=== PATIENT | male | born 1960 | race Caucasian/White ===

== ENCOUNTER 2022-03-28 09:59 | Inpatient (IN) | payer OTHER ==
[~2022-03-28] VITALS: Ht 175.3 cm; Wt 98.5 kg
[2022-03-28 11:23] LABS: Source, Urine Clean Catch
[2022-03-28 11:29] LABS: BASOPHILS ABSOLUTE AUTO 0.07 K/mm3 (0.00-0.23); BASOPHILS PERCENT AUTO 1 % (0-2); EOSINOPHILS ABSOLUTE AUTO 0.24 K/mm3 (0.00-0.68); EOSINOPHILS PERCENT AUTO 2 % (0-6); Hematocrit 32.5 % (37.0-53.0); Hemoglobin 11.1 g/dL (13.5-17.5); IMMATURE GRAN ABSOLUTE AUTO 0.04 K/mm3 (0.00-0.10); IMMATURE GRAN PERCENT AUTO 0 % (0-1); LYMPHOCYTES PERCENT AUTO 15 % (21-46); MONOCYTES ABSOLUTE AUTO 0.97 K/mm3 (0.16-1.47); MONOCYTES PERCENT AUTO 9 % (4-13); Mean Corpuscular HGB 31.4 pg (26.0-34.0); Mean Corpuscular HGB Conc 34.2 g/dL (31.5-36.5); Mean Corpuscular Volume 92 fL (80-100); NEUTROPHILS ABSOLUTE AUTO 8.32 K/mm3 (1.96-9.15); NEUTROPHILS PERCENT AUTO 73 % (41-73); Platelet Count 269 K/mm3 (150-400); RDW Coefficient Variation 11.9 % (11.7-14.2); Red Blood Cell Count 3.53 M/mm3 (4.30-5.90); White Blood Cell Count 11.34 K/mm3 (4.00-11.30)
[2022-03-28 11:30] LABS: Appearance, Urine Clear (Clear); Bilirubin, Urine Neg (Neg); Blood, Urine 5+ (Neg); Color, Urine Yellow (P-Yellow); Glucose Qualitative, Urine Neg (Neg); Ketones, Urine Neg (Neg); Leukocyte Esterase, Urine Neg (Neg); Nitrite, Urine Neg (Neg); Protein, Urine 4+ (Neg); Specific Gravity, Urine 1.015 (1.003-1.022); Urobilinogen, Urine NORM (Normal)
[2022-03-28 11:49] LABS: Influenza A, PCR NEGATIVE (NEGATIVE); Influenza B, PCR NEGATIVE (NEGATIVE); Resp Syncytial Virus, PCR NEGATIVE (NEGATIVE); SARS-Cov-2 (COVID-19) PCR, MMC NEGATIVE (NEGATIVE)
[2022-03-28 11:58] LABS: Albumin, Blood 3.7 g/dL (3.4-5.0); Albumin/Globulin Ratio 0.9 (0.8-1.8); Bilirubin, Total 0.5 mg/dL (0.1-1.0); Bun/Creatinine Ratio 15.6 (12.0-20.0); Calcium, Blood 9.4 mg/dL (8.5-10.1); Creatinine, Blood 4.23 mg/dL (0.60-1.20); Globulin, Blood 3.9 g/dL (2.2-4.0); Potassium, Blood 4.3 mmol/L (3.5-5.5); Total Protein, Blood 7.6 g/dL (6.4-8.2)
[2022-03-28 12:17] LABS: Squamous Epithelial Cells Rare /hpf (Few); White Blood Cells, Urine 0-2 /hpf (0-5)
[2022-03-28 12:18] LABS: Bacteria Rare /hpf
--- NOTE | 2022-03-28 19:29 | NUR ---
NOTES: PATIENT ARRIVED TO ROOM AT 1705 VIA WHEELCHAIR FROM ER ADMITT. PATIENT A&OX4. CALM, PLEASANT AND COOPERATIVE C CARE. ORIENT TO ROOM AND CALL LIGHT. ASSESSMENT AND ADMISSION COMPLETE. SKIN ASSESSMENT C 2 RN VERIFICATION DONE. NOTED BRUISING TO L ABDOMEN AND R SILVEIRA. PATIENT HAS GREGG AND WAS PLACED IN ER. GREGG PATENT DRAINING TO GRAVITY c RED COLOR URINE. IV TO R AC INFUSING NS AT 200 MLS/HR. VITAL SIGNS REVIEWED CALL LIGHT IN REACH.
--- NOTE | 2022-03-29 04:53 | NUR ---
PRIMARY MILL ROLLER SUMMARY THE PATIENT IS A 61 YEAR-OLD MALE WITH A DIAGNOSIS OF OBSTRUCTIVE UROPATHY, MODERATE HYDRONEPHROSIS, HYDROURETER. A&OX4. PATIENT EFFECTIVELY COMMUNICATES NEEDS. VSS. PATIENT IS HYPERTENSIVE. HYDRALAZINE ADMINISTERED PER EMAR. NS INFUSING @200ML/HR. GREGG CATHETER DRAINING HEMATURIA. PATIENT DENIES PAIN. BED LOW AND LOCKED. CALL LIGHT WITHIN REACH. THIS RN WILL CONTINUE TO MONITOR.
[2022-03-29 06:11] LABS: Bun/Creatinine Ratio 19.4 (12.0-20.0); Calcium, Blood 8.7 mg/dL (8.5-10.1); Creatinine, Blood 2.99 mg/dL (0.60-1.20); Potassium, Blood 3.9 mmol/L (3.5-5.5)
--- NOTE | 2022-03-29 19:34 | NUR ---
SHIF SUMMARY: PATIENT A&OX4. CALM, PLEASANT AND COOPERATIVE c CARE. USES CALL LIGHT APPROPRIATELY AND ABLE TO ADVOCATE FOR HIS NEEDS. DENIES CP/CHEST DISCOMFORT. DENIES SUPRAPUBIC PAIN OR TENDERNESS. PATIENT HAS GREGG PATENT DRAINING TO GRAVITY PRODUCED DARK RED c SMALL CLOTS BEGINNING OF SHIFT. 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 PATIENT BP STILL ELEVATED 170'S/100'S. RECEIVED SCHEDULED BP MEDS. AROUND 1517 BP 197/109 c HR OF 86 BPM. MEDICATED X1 C PO HYDRALAZINE. AT 1607 BP 174/104 c HR OF 87 BPM. IV TO R AC INFUSING NS AT 200 MLS/HR. CALL LIGHT IN REACH.
[2022-03-30 05:55] LABS: Hemoglobin 10.2 g/dL (13.5-17.5); Mean Corpuscular HGB 31.5 pg (26.0-34.0); Mean Corpuscular HGB Conc 35.2 g/dL (31.5-36.5); Mean Corpuscular Volume 90 fL (80-100); Mean Platelet Volume 9.7 fL (9.1-12.4); Platelet Count 221 K/mm3 (150-400); RDW Coefficient Variation 11.8 % (11.7-14.2); RDW Standard Deviation 37.8 fL (35.1-46.3); Red Blood Cell Count 3.24 M/mm3 (4.30-5.90); White Blood Cell Count 10.94 K/mm3 (4.00-11.30)
[2022-03-30 06:27] LABS: Albumin, Blood 2.6 g/dL (3.4-5.0); Albumin/Globulin Ratio 0.8 (0.8-1.8); Bilirubin, Total 0.5 mg/dL (0.1-1.0); Bun/Creatinine Ratio 16.2 (12.0-20.0); Calcium, Blood 7.9 mg/dL (8.5-10.1); Creatinine, Blood 2.16 mg/dL (0.60-1.20); Globulin, Blood 3.1 g/dL (2.2-4.0); Magnesium, Blood 1.7 mg/dL (1.6-2.4); Potassium, Blood 3.2 mmol/L (3.5-5.5); Thyroid Stimulating Hormone 3.23 uIU/mL (0.360-4.800); Total Protein, Blood 5.7 g/dL (6.4-8.2)
[2022-03-30 08:52] LABS: CHOL/HDL RATIO 3.5; Cholesterol 130 mg/dL (50-200); HDL Cholesterol 37 mg/dL (>39); Low Density Lipoprotein Chol 73 mg/dL (0-110); Triglycerides 101 mg/dL (30-160); Very Low Density Lipoprot Chol 20 mg/dL (6-32)
--- NOTE | 2022-03-30 18:42 | NUR ---
SIFT SUMMARY: NO ACUTE EVENTS. DENIED PAIN AND BLADDER SPASMS. GREGG DRAINING ADEQUATE URINE, PINK TO CRANBERRY. POTASSIUM REPLACED. AMBULATED AROUND UNIT X 1, ENCOURAGED MORE MOVEMENT THROUGHOUT THE DAY. CARDIAC ECHO COMPLETE. FAMILY AT BEDSIDE ALL SHIFT.
[2022-03-31 05:47] LABS: Hematocrit 25.2 % (37.0-53.0); Hemoglobin 8.9 g/dL (13.5-17.5); Mean Corpuscular HGB Conc 35.3 g/dL (31.5-36.5); Mean Corpuscular Volume 91 fL (80-100); Mean Platelet Volume 9.8 fL (9.1-12.4); Platelet Count 207 K/mm3 (150-400); RDW Coefficient Variation 11.9 % (11.7-14.2); RDW Standard Deviation 39.4 fL (35.1-46.3); Red Blood Cell Count 2.78 M/mm3 (4.30-5.90); White Blood Cell Count 8.66 K/mm3 (4.00-11.30)
[2022-03-31 06:09] LABS: Albumin, Blood 2.5 g/dL (3.4-5.0); Albumin/Globulin Ratio 0.9 (0.8-1.8); Bilirubin, Total 0.3 mg/dL (0.1-1.0); Bun/Creatinine Ratio 12.3 (12.0-20.0); Calcium, Blood 7.4 mg/dL (8.5-10.1); Creatinine, Blood 1.87 mg/dL (0.60-1.20); Globulin, Blood 2.7 g/dL (2.2-4.0); Potassium, Blood 3.5 mmol/L (3.5-5.5); Total Protein, Blood 5.2 g/dL (6.4-8.2)
--- NOTE | 2022-03-31 06:14 | NUR ---
NEURO AOX4, able to coomunicate needs and wants Puppils 3mm bilateral brisk and PERLLA. Michael headache, dizziness or photophobia RESP CLear Lung sounds bilateral lobes, denies SOB. Maintains saturations >92% on room air CARDIAC Heart sounds S1S2 with no adventitious sounds audible. BP 162/93, assymptomatic. Radial and pedal pulses strong bilateral. GI Regular diet 16F Kaur inserted 03/28/22 for urinary obstruction. urine pink - no sedimentation noted. patient declines pain. Patient states doing self kaur care. Plan NS infusing at 200ML/hr to R AC 20g. Plan to DC and follow up with urology outpatient
[2022-03-31 09:27] LABS: Percent Saturation 45.4 % (20.0-50.0)
--- NOTE | 2022-03-31 16:50 | NUR ---
SHIFT SUMMARY: NO NEW CHANGES THIS SHIFT. PATIENT A&OX4. ANXIOUS, PLEASANT AND COOPERATIVE c CARE. USES CALL LIGHT APPROPRIATELY AND ABLE TO ADVOCATE FOR HIS NEEDS. PATIENT STILL ON GREGG FOR URINARY RETENTION. GREGG PATENT DRAINING TO GRAVITY PRODUCED PINKISH URINE. DENIES SUPRAPUBIC TENDERNESS/PAIN. VITAL SIGNS REVIEWED. IV TO R AC INFUSING NS AT 200 MLS/HR. RECEIVED SHOWER AND LINEN CHANGED THIS PM. CALL LIGHT IN REACH.
--- NOTE | 2022-04-01 04:39 | NUR ---
A/Ox4; CALM AND COOPERATIVE. DENIES PAIN AT THIS TIME. IND IN ROOM. GREGG PATENT; YELLOW/ PEACH COLOR, FILLS QUICKLY. IVF INFUSING PER ORDERS. HTN; BP MEDS ORDERED - EDUCATED PATIENT ON SAFE PARAMETERS FOR ADMINISTRATION. SLEEP PROMOTED. CALL LIGHT IN REACH; ENCOURAGED TO MAKE NEEDS KNOWN.
[2022-04-01 07:01] LABS: BASOPHILS ABSOLUTE AUTO 0.04 K/mm3 (0.00-0.23); BASOPHILS PERCENT AUTO 1 % (0-2); EOSINOPHILS ABSOLUTE AUTO 0.64 K/mm3 (0.00-0.68); EOSINOPHILS PERCENT AUTO 8 % (0-6); Hematocrit 27.1 % (37.0-53.0); Hemoglobin 9.3 g/dL (13.5-17.5); IMMATURE GRAN ABSOLUTE AUTO 0.05 K/mm3 (0.00-0.10); IMMATURE GRAN PERCENT AUTO 1 % (0-1); LYMPHOCYTES ABSOLUTE AUTO 2.26 K/mm3 (0.84-5.20); LYMPHOCYTES PERCENT AUTO 29 % (21-46); MONOCYTES ABSOLUTE AUTO 0.54 K/mm3 (0.16-1.47); MONOCYTES PERCENT AUTO 7 % (4-13); Mean Corpuscular HGB 31.8 pg (26.0-34.0); Mean Corpuscular HGB Conc 34.3 g/dL (31.5-36.5); Mean Corpuscular Volume 93 fL (80-100); Mean Platelet Volume 9.8 fL (9.1-12.4); NEUTROPHILS ABSOLUTE AUTO 4.25 K/mm3 (1.96-9.15); NEUTROPHILS PERCENT AUTO 55 % (41-73); Platelet Count 212 K/mm3 (150-400); RDW Standard Deviation 40.5 fL (35.1-46.3); Red Blood Cell Count 2.92 M/mm3 (4.30-5.90); White Blood Cell Count 7.78 K/mm3 (4.00-11.30)
[2022-04-01 07:23] LABS: Bun/Creatinine Ratio 11.2 (12.0-20.0); Calcium, Blood 7.4 mg/dL (8.5-10.1); Creatinine, Blood 1.7 mg/dL (0.60-1.20); Potassium, Blood 3.7 mmol/L (3.5-5.5)
[2022-04-01] MEDS ORDERED: AMLO5 PO (11:24)
[2022-04-01] MEDS ORDERED: Acetaminophen650 M1 PO (11:24)
[2022-04-01] MEDS ORDERED: DOXA4 PO (11:25)
[2022-04-01] MEDS ORDERED: MIRT30 PO (11:25)
[2022-04-01] MEDS ORDERED: FLOMAX0.4 MG PO (11:26)
[2022-04-01] MEDS ORDERED: METO25ER PO (11:26)
--- NOTE | 2022-04-01 11:54 | NUR ---
DISCHARGE SUMMARY DISCHAGE, FOLLOWUP AND MEDICATION INSTRUCTIONS GIVEN TO PATIENT AND FAMILY. PT VOICED COMPLETE UNDERSTANDING AND HAS NO QUESTIONS AT THIS TIME. GREGG BAG CHANGED TO LEG BAG AND INSTRUCTIONS GIVEN ON PROPER USE. IV REMOVED WITH CATHETER TIP INTACT. WILL CONTINUE TO MONITOR UNTIL PT LEAVES.
== END 2022-04-01 11:58 | disposition home or self-care (01) | DRG 683 ==
LOC: ER 09:59 → EDBD 09:59 → MEDS 14:33
PROVIDERS: Internal Medicine; Nurse Practitioner Acute Care; Physician Assistant; ADMIT Internal Medicine
DX: N17.9 Acute kidney failure, unspecified (principal); I43 Cardiomyopathy in diseases classified elsewhere; N32.0 Bladder-neck obstruction; N13.30 Unspecified hydronephrosis; I16.0 Hypertensive urgency; N13.9 Obstructive and reflux uropathy, unspecified; R33.9 Retention of urine, unspecified; D64.9 Anemia, unspecified; I11.9 Hypertensive heart disease without heart failure; Z20.822 Contact with and (suspected) exposure to COVID-19
CPT/HCPCS: 0241U; 36415; 51702; 51798; 74177; 80048; 80053; 80061; 81001; 82607; 82728; 82746; 83540; 83550; 83690; 83735; 84153; 84443; 85025; 85027; 93306; 99285-25; A9270; J1644; J7030; Q9967